=== PATIENT | female | born 1995 | race Two or more races ===

== ENCOUNTER 2020-11-18 00:17 | Emergency (ER) | payer SELFPAY ==
[~2020-11-18] VITALS: Ht 170.2 cm; Wt 72.6 kg
[2020-11-18 00:24] VITALS: BP 121/83
--- NOTE | 2020-11-18 00:24 | NUR ---
ED Nurse Note: PT. AAOX4. PT. WALKED IN TO ER FROM HOME. PER PT. SHE HAS CYSTS ON HER LABIA X 1 WEEK NOW AND GOT WORST
[2020-11-18] MEDS ORDERED: IBUPROFEN600 M1 ORAL (00:50)
[2020-11-18] MEDS ORDERED: BACTRIM DS TAB1 EAC1 ORAL (00:50)
--- NOTE | 2020-11-18 00:51 | Emergency Room Report ---
History of Present Illness General Chief Complaint: Skin Rash/Abscess Source: Patient Present Illness [facility] This is a 24-year-old female with no past medical history. She presents with a chief complaint of a lump on her vaginal area. Onset for last couple days. More swollen and painful. Worse with weightbearing and palpation. Better with rest. Pain is 8 out of 10. Never had this problem before. Denies any fever chills but denies any drainage. Allergies: Uncoded Allergies: FISH (Allergy, Unknown, 11/18/20) COVID-19 Screening Contact w/high risk pt: No Experienced COVID-19 symptoms?: No COVID-19 Testing performed [employer] [place]: No Patient History Past Medical History: see triage record, old chart reviewed Past Surgical History: none Pertinent Family History: none Social History: Denies: smoking Last Menstrual Period: 10/31/20 Now: No Immunizations: other Reviewed Nursing Documentation: PMH: Agreed; PSxH: Agreed Review of Systems Eye: Denies: eye pain, blurred vision ENT: Denies: ear pain, nose congestion, throat swelling Respiratory: Denies: cough, shortness of breath Cardiovascular: Denies: chest pain, palpitations Gastrointestinal: Denies: abdominal pain, diarrhea, nausea, vomiting Musculoskeletal: Denies: back pain, joint pain Skin: Denies: rash Neurological: Denies: headache, numbness Endocrine: Denies: increased thirst, increased urine Hematologic/Lymphatic: Denies: easy bruising All Other Systems: negative except mentioned in HPI Physical Exam Vital Signs Date Time Temp Pulse Resp B/P (MAP) Pulse Ox O2 Delivery O2 Flow Rate FiO2 11/18/20 00:24 98.4 83 19 121/83 (96) 98 Room Air Vitals normal Sp02 EP Interpretation: reviewed, normal General Appearance: well appearing, no apparent distress, alert Head: normocephalic, atraumatic Eyes: bilateral eye PERRL, bilateral eye EOMI ENT: hearing grossly normal, normal pharynx Neck: full range of motion, supple, no meningismus Respiratory: chest non-tender, lungs clear, normal breath sounds Cardiovascular #1: regular rate, rhythm, no murmur Gastrointestinal: normal bowel sounds, non tender, no mass, no organomegaly, no bruit, non-distended Genitourinary: other - Vaginal exam done with female nurse as nursing specialist. She has Bartholin cysts to the left labia. Musculoskeletal: back normal, normal range of motion, gait/station normal Psychiatric: mood/affect normal Procedures Incision and Drainage Incision and Drainage : Consent: Verbal Site: Vagina Blade Size: 11 I & D Procedure: betadine prep Wound Location: pelvis Anesthesia: 1% Lidocaine Volume Anesthetic (ccs): 2 Patient Tolerated: Well Complications: None Progress Area cleaned with Betadine. Local anesthetic 1% lidocaine with epinephrine. I made a 1 cm incision. There was moderate amount of pus expressed. Patient tolerated procedure well any problem. [place] better. Medical Decision Making Diagnostic Impression: Primary Impression: Bartholin's gland abscess ER Course Patient presents with a Bartholin cyst abscess. No evidence of deep infection. No necrotizing fasciitis. Will discharge home. Last Vital Signs Date Time Temp Pulse Resp B/P (MAP) Pulse Ox O2 Delivery O2 Flow Rate FiO2 11/18/20 00:24 98.4 83 19 121/83 (96) 98 Room Air Status: improved Disposition: HOME, SELF-CARE Condition: Improved Scripts Ibuprofen* (MOTRIN*) 600 Mg Tablet 600 MG ORAL Q6H PRN for For Pain, #30 TAB 0 Refills Prov: Vishnu Blanca MD 11/18/20 Trimethoprim/Sulfamethoxazole 160/800* (BACTRIM DS TABLET*) 1 Each Tablet 1 TAB ORAL Q12H, #14 TAB 0 Refills Prov: Vishnu Blanca MD 11/18/20 Referrals: NOT CHOSEN IPA/,REFERRING (PCP) Additional Instructions: Follow-up with In 7 days. Return if symptoms worsen. Vishnu Blanca MD Nov 18, 2020 00:51
--- NOTE | 2020-11-18 00:52 | NUR ---
ER DISCHARGE NOTE: Patient is cleared to be discharged per ERMD, pt is aox4, on room air, with stable vital signs. pt was given dc and prescription instructions, pt was able to verbalize understanding, pt id band removed. pt is able to ambulate with steady gait. pt took all belongings.
[2020-11-18 00:55] VITALS: BP 132/75
== END 2020-11-18 00:55 | disposition home or self-care (01) ==
LOC: EMR 00:38
DX: N75.1 Abscess of Bartholin's gland (principal); Z91.013 Allergy to seafood
CPT/HCPCS: 10060; 99282